=== PATIENT | male | born 1965 | race American Indian/Alaskan Native ===

== ENCOUNTER 2017-10-30 07:21 | Day surgery (SDC) | payer OTHER ==
[2017-10-30] MEDS ORDERED: Lidocaine 2% Inj (20ml) ONE ×2 (07:42→09:10)
[2017-10-30] MEDS ORDERED: Iodixanol 320 MG/ML 100 ML BOTTLE IV ONE (07:44)
[2017-10-30] MEDS ORDERED: Iohexol 350mgl/ml 50 ML ONE (07:44)
[2017-10-30] MEDS ORDERED: Phenylephrine 10 mg/ml Inj ONE (07:45)
[2017-10-30] MEDS ORDERED: Iodixanol 320 MG/ML 200 ML BOTTLE IV ONE (07:45)
[2017-10-30] MEDS ORDERED: Midazolam 2 MG/2 ML VIAL ONE (08:05)
[2017-10-30] MEDS ORDERED: Nitroglycerin 50mg in D5W 50 MG/250 ML BOTTLE IV ONE (09:03)
[2017-10-30] MEDS ORDERED: Sodium Chloride 0.9% 1,000 ML IV SCH (09:30)
[2017-10-30 12:18] VITALS: BP 161/85; PULSE 84; RESP 20; TEMP 98.2
--- NOTE | 2017-10-30 12:58 | CARD ---
APPROVED REPORT EKG Measurement Heart [id number] NC [id number] <Conclusion> Normal sinus rhythm Possible Left atrial enlargement Rightward axis Incomplete right bundle branch block Nonspecific T wave abnormality Prolonged QT Abnormal ECG
--- NOTE | 2017-10-30 14:51 | CARDCATH ---
PROCEDURE DATE: 10/30/2017 PROCEDURES: 1. Percutaneous balloon angioplasty and drug-eluting stent placement of left anterior descending coronary artery. 2. Percutaneous balloon angioplasty and drug-eluting stent placement of the ramus artery. 3. Balloon angioplasty of the diagonal artery. CLINICAL INDICATIONS: 1. Chest pain. 2. Coronary artery disease. 3. Hypertension. 4. Hyperlipidemia. 5. Diabetes. 6. Abnormal stress test. REFERRING PHYSICIAN: 1. MD. 2. Tai Sheth MD PERFORMING PHYSICIAN: Mikey Rizzo MD BRIEF CLINICAL HISTORY: Denny Dee is a 52-year-old gentleman with history of diabetes, hypertension, hyperlipidemia, admitted to [facility] with exertional angina radiating to the left arm and neck. Subsequent stress test was abnormal. The patient had a cardiac cath done at [facility] which was abnormal, then, the patient was transferred here for elective intervention. PROCEDURE: After informed consent, the patient was prepped and draped in the usual sterile fashion. Lidocaine 2% was given in the right groin for local anesthesia. Using micropuncture technique, 6-Austrian sheath was introduced into right common femoral artery. The patient was preloaded with aspirin, Plavix and IV heparin. ACT was maintained above 250 throughout the procedure. A 6-Austrian XB 3.5 guided catheter engaged into left main coronary artery. Contrast injected and left coronary angiogram was done. Left coronary angiogram has revealed 90% stenosis of the mid ramus artery with GABRIEL 2 flow distally. LAD also has 80-90% mid stenosis with GABRIEL 2 flow distally. The smaller diagonal artery which has 99% stenosis. Ramus coronary artery threaded using run-through coronary wire. The lesion was predilated using 2 x 20 Compliant balloon. Later stented with 2.75 x 30 Resolute [place] drug-eluting stent. Then, the left anterior descending coronary artery threaded with same run-through coronary wire. The lesion was predilated using 2 x 20 Compliant balloon. Stented with 2.5 x 30 Resolute [place] stent. Then the diagonal artery was treated with balloon angioplasty using 1.5 x 20 Compliant balloon. Excellent final angiographic results with brisk GABRIEL 3 flow noted in all treated coronary arteries, which included left anterior descending coronary artery ramus and diagonal artery. Post procedure, Perclose suture deployed with excellent hemostasis. The patient will be transferred to Observation Unit for further management. Mikey Rizzo MD [facility] # [id number]
== END 2017-10-30 12:51 | disposition home or self-care (01) ==
LOC: MERGE 07:21 → CATH 07:21 → 2RSO 09:38 → CATH 12:51
PROVIDERS: ATTEND Internal Medicine Cardiovascular Disease
DX: I25.10 Atherosclerotic heart disease of native coronary artery without angina pectoris (principal); I10 Essential (primary) hypertension; E78.5 Hyperlipidemia, unspecified; E11.9 Type 2 diabetes mellitus without complications; R94.39 Abnormal result of other cardiovascular function study; R07.9 Chest pain, unspecified
CPT/HCPCS: 85175; 93005; 99152; 99153; C1725 ×2; C1769 ×2; C1874 ×2; C1887; C1894; C9600; C9601; J0360; J1644 ×2; J2250; J3010; J7030 ×2; Q9966; Q9967 ×2

== ENCOUNTER 2018-07-02 08:17 | Day surgery (SDC) | payer OTHER, BC ==
[2018-07-02] MEDS ORDERED: Lidocaine PF 2% (5 ml) Inj (For Cardiac Arrhy) ONE (08:41)
[2018-07-02] MEDS ORDERED: Iodixanol 320 MG/ML 200 ML BOTTLE IV ONE (08:42)
[2018-07-02] MEDS ORDERED: Phenylephrine 10 mg/ml Inj ONE (08:42)
[2018-07-02] MEDS ORDERED: Iodixanol 320 MG/ML 100 ML BOTTLE IV ONE (08:42)
[2018-07-02] MEDS ORDERED: Iohexol 350mgl/ml 50 ML ONE (08:42)
[2018-07-02] MEDS ORDERED: Nitroglycerin 50mg in D5W 50 MG/250 ML BOTTLE IV ONE (08:52)
[2018-07-02] MEDS ORDERED: Midazolam 2 MG/2 ML VIAL ONE (09:52)
[2018-07-02] MEDS ORDERED: DiphenhydrAMINE 50 mg/ml Inj ONE (09:54)
[2018-07-02] MEDS ORDERED: Sodium Chloride 0.9% 500 ML IV SCH ×2 (11:30→13:45)
--- NOTE | 2018-07-02 14:15 | CARD ---
APPROVED REPORT Date of service: 07/02/2018 EKG Measurement Heart [id number] <Conclusion> Normal sinus rhythm Left anterior fascicular block Abnormal QRS-T angle, consider primary T wave abnormality Prolonged QT
[2018-07-02] MEDS: Sodium Chloride 0.9% 500 ML IV SCH ×2 (16:52)
[2018-07-02] MEDS: Insulin Lispro (humaLOG) MEDIUM Coverage SC SCH ×2 (18:02→21:07)
[2018-07-02 21:58] VITALS: BP 167/91
[2018-07-02 21:59] VITALS: PULSE 64; RESP 21; TEMP 98
--- NOTE | 2018-07-06 19:04 | CP.PCM.DIS ---
Provider - Provider Attending physician: Sandra Portillo MD Time Spent in preparation of Discharge (in minutes): 70 Diagnosis - Discharge Diagnosis (1) CHF (congestive heart failure) Status: Acute (2) Coronary artery disease Status: Chronic Priority: High (3) Pleural effusion Status: Acute Hospital Course - Lab Results Lab Results: Most Recent Lab Values POC Glucose (mg/dL) 254 mg/dL (65-110) H 07/02/18 20:31 - Hospital Course Hospital Course: Upon Admission: Patient is a 53 year old male with past medical history of CAD w/ 2 stents (11/2017), HTN, HLD, DM, medication noncompliance presenting to ED for worsening shortness of breath with associated dry cough for 1 week. Patient also endorses associated substernal chest pressure, which he currently denies. Patient had similar symptoms 1 years ago, for which he was seen by his PMD and prescribed a saline nasal spray which relieved his symptoms. Patient tried the nasal spray this time, without relief. Of note, patient has not taken meds for the past week because he says he ran out and never followed up. No fevers/chills, headaches, dizziness, chest pain, palpitations, changes in vision, acute sob, abdominal pain, n/v/d/c, numbness/tingling. No recent illnesses, hospitalizations, or sick contacts. Hospital Course: Diagnoses: 1. CHF exacerbation 2. CAD 3. Pleural effusions patient was restarted on home medications BNP: 12,200 on admission CXR showed pleural effusions. IR was consulted and performed a thoracentesis. 650 cc of clear fluid right and 300 cc of clear fluid left were removed -Fluid analysis: WBC 160, RBC 30, Neutrophils 6, Lymphocytes 90, Monocytes 3 Cardiology was consented and patient received a cardiac cath showing 80-90% stenosis in the mid LAD proximal to patent stent. Patient's creatinine increased suggesting acute renal failure. Nephrology was consulted and recommended stopping all nephrotoxic agents. Patient's renal status improved, and was deemed stable for discharge. Upon Discharge: Patient was deemed stable for discharge to home. He was given instructions to follow up with his primary doctor and to take medications as prescribed. Pt understood instructions and agreed. Discharge Exam - Head Exam Head Exam: ATRAUMATIC, NORMOCEPHALIC - Eye Exam Eye Exam: EOMI Pupil Exam: NORMAL ACCOMODATION - Respiratory Exam Respiratory Exam: Decreased Breath Sounds, NORMAL BREATHING PATTERN. absent: Rales, Wheezes - Cardiovascular Exam Cardiovascular Exam: REGULAR RHYTHM, +S1, +S2. absent: Gallop, Rubs, Systolic Murmur - GI/Abdominal Exam GI & Abdominal Exam: Normal Bowel Sounds, Soft. absent: Distended, Tenderness - Neurological Exam Neurological exam: Alert, CN II-XII Intact, Oriented x3, Reflexes Normal - Psychiatric Exam Psychiatric exam: Normal Affect, Normal Mood Discharge Plan - Follow Up Plan Condition: GOOD Disposition: Trans to Other Acute Care Hosp Instructions: Heart Failure (DC), Heart Failure (GEN), Pacemaker (DC), Pacemaker (GEN), Pulmonary Edema (DC), Pulmonary Edema (GEN), Ascites (DC), Ascites (GEN)
--- NOTE | 2018-07-08 21:58 | CARD ---
APPROVED REPORT Date of service: 07/02/2018 HISTORY The patient is a 53 year-old male with a history of : previous AK (> 7 days), most recent EF: 45%. (EF Method: Echocardiogram), previous CHF, coronary artery disease. INDICATION The indication(s) include : unstable angina , dyspnea, CHF. PCI Technique Lesion Anticoagulation was achieved with Heparin. Percutaneous coronary intervention was performed on the proximal left anterior descending artery segment. The lesion stenosis prior to intervention was 80% with GABRIEL 2 flow. A 6 F XBLAD Guide Catheter was used to engage the LM ostium. A BMW Interventional Guidewire was used to cross the lesion. BALLOON DILATION A Balloon catheter 2.5X8 was inserted and inflated up to 10atm for 30seconds. STENT DEPLOYMENT A drug-eluting stent 2.75X8 was inserted and inflated up to 12atm for 30seconds. POST STENT DEPLOYMENT BALLOON DILATION A Balloon catheter 3.0X8 NC was inserted and inflated up to 12atm for 30seconds. Final angiography reveals 0 % stenosis with GABRIEL 3 flow. Conclusion Successful PTCA and Stent of LAD. DAPT compliance. Risk factor modification.
== END 2018-07-02 21:27 | disposition short-term general hospital (02) ==
LOC: CATH 08:17 → 2RSO 10:51 → CATH 21:27
PROVIDERS: ATTEND Internal Medicine
DX: I25.110 Atherosclerotic heart disease of native coronary artery with unstable angina pectoris (principal); I11.0 Hypertensive heart disease with heart failure; I50.9 Heart failure, unspecified; E78.5 Hyperlipidemia, unspecified; E11.9 Type 2 diabetes mellitus without complications; I25.2 Old myocardial infarction; Z95.5 Presence of coronary angioplasty implant and graft; Z91.14 Patient's other noncompliance with medication regimen
CPT/HCPCS: 82948; 93005; 99152; 99153; C1725; C1769 ×2; C1887; C2629; C9600; J0360; J1200; J1644; J2250; J3010; J7030; J7040; Q9966; Q9967